=== PATIENT | male | born 1940 | race Caucasian/White ===

== ENCOUNTER 2017-03-23 22:23 | Emergency (ER) | payer MEDICARE, BC ==
[~2017-03-23] VITALS: Ht 180.3 cm; Wt 125.0 kg
[~2017-03-23 22:23] MED LIST: HYDR-1666; INDO25CA25; LEVO125T58; RANI150C11; [UNRECOGNIZED DRUG - CODE]
[2017-03-23 22:26] VITALS: Ht 180.3 cm; Wt 125.0 kg
[2017-03-23] MEDS ORDERED: LIDOCAINE 2% (MDV) 20 ML INJ INJ STA (22:56)
[2017-03-23] MEDS ORDERED: DIPHTH/TET/ACEL PERTUSS (ADULT) 0.5 ML VIAL IM ONE (23:00)
--- NOTE | 2017-03-23 23:35 | ERD ---
ER Documentation Chief Complaint Chief Complaint c/o left index finger lac x 30 min. (+) pressure dsg. HPI 76-year-old male presents 30 minutes status post left finger versus nutcracker. Laceration sustained. Denies diabetes. Denies numbness, tingling, loss of range of motion. Not on any blood thinners. Pain /. Vaccination status unknown. Patient has no other complaints and describes no other associated manifestations. Nursing notes have been reviewed and are consistent with history given. ROS All systems reviewed and are negative except as per history of present illness. Medications Home Meds Reported Medications Hydrocodone Bit/Acetaminophen (Vicodin 5/500 Tablet) 1 Tab Tablet 05/21/09 Indomethacin* (Indocin*) 25 Mg Capsule 04/29/09 Ranitidine Hcl (Ranitidine Hcl) 150 Mg Capsule 04/29/09 Levothyroxine Sodium (Levothroid) 125 Mcg Tablet 04/29/09 Amlodipine-Benazepril (Lotrel) 1 Cap Capsule 04/29/09 Allergies Allergies: Coded Allergies: Penicillins (Verified Allergy, Severe, RASH, 04/29/09) PMhx/Soc History of Surgery: Yes (juhi knee, pituitary tumor, cholecystectomy, left hip) Hx Neurological Disorder: No Hx Respiratory Disorders: No Hx Cardiac Disorders: Yes (HTN) Hx Miscellaneous Medical Probl: Yes (GOUTY ARTHRITIS) Hx Alcohol Use: No Hx Substance Use: No Hx Tobacco Use: No Smoking Status: Never smoker Physical Exam Vitals Vital Signs Date Time Temp Pulse Resp B/P Pulse Ox O2 Delivery O2 Flow Rate FiO2 03/23/17 22:26 98.7 83 18 157/85 98 Physical Exam Const: Healthy-appearing. Well-nourished. Well-developed. No acute distress. Skin: 4 cm vertical laceration over the radial aspect of the left second digit.. No petechiae or rashes. No ulcer, induration, jaundice. Good turgor. Ext: No cyanosis or edema noted. Head: Normocephalic. As noted in skin exam. Eyes: Non-injected; No scleral erythema, or discharge. EOMI and SHERLY bilaterally. Ears: Normal External Ears, EACs clear, TM normal bilaterally without erythema. Nose: Normal nose without discharge, septal deviation, or sinus tenderness. Oral: No oral edema visualized. Mucous membranes moist and pink. Neck: No cervical lymphadenopathy, or masses. Trachea midline. Supple ~ No meningismus. Pulm: Good air movement in upper and lower respiratory tracts. No dyspnea, stridor, tripoding or drooling. Clear to auscultation bilaterally. Cardio: Regular rate and rhythm. No JVD grossly observed. Radial and posterior tibial pulses 2+ bilaterally. No cyanosis. Capillary refill less than 2 seconds. Abd: Soft, non tender, non distended. No guarding. Normal bowel sounds. MS: Normal motor strength, normal tone with gross examination. Back: No midline or flank tenderness. Neur: Neurovascularly intact bilaterally. Awake, alert and oriented x3. Results 24 hrs Current Medications Medications (Trade) Dose Ordered Sig/Rodger Route PRN Reason Start Time Stop Time Status Last Admin Dose Admin Diphtheria/ Tetanus/Acell Pertussis (Adacel) 0.5 ml ONCE ONCE IM 03/23/17 23:00 03/23/17 23:01 DC 03/23/17 23:25 Lidocaine (Xylocaine 2% (Mdv) 20 ml) 20 ml ONCE STAT INJ 03/23/17 22:56 03/23/17 22:58 DC Procedures/MDM 76-year-old male presented with a chief complaint of laceration to the radial aspect of the second left digit. Neurovascularly intact. Tendons intact. 5 4- 0 nylon sutures were placed. 3 mL lidocaine without epi used to anesthetize the area with adequate anesthesia. No complications. Good approximation. No indication for antibiotics at this time. Tetanus shot given. I have spoke with the patient regarding their condition and future management. They have verbally responded that they understand their status and treatment plan. The patients vitals are stable, and their current condition is appropriate for discharge. The patient will be given discharge instructions with return precautions. Departure Diagnosis: Primary Impression: Laceration Condition: Stable Additional Instructions: You were seen in the emergency department for your laceration which has been closed. Your wound has been cleaned and covered with antibiotic ointment. Please keep this dressing on for 12 hours. After 12 hours take the dressing down and gently clean the wound with ONLY soap and water. If you were given antibiotics, complete the course of treatment as prescribed. Look for signs of infection such as increasing redness, swelling, pain or drainage of pus (yellow/ green fluid). If you see signs of infection, please return to the emergency department immediately. If there are no signs of infection, cover your wound with antibiotic ointment and reapply a dressing. You will form a scar. To keep from scarring too dark, keep your wound covered and out of the sun for the next 6-12 months. Consider using OTC anti-scar creams such as Mederma. Return to the ED for a wound check in 2 days and again for suture removal in 10-14 days. NEYMAR PADILLA PA-C Mar 23, 2017 23:35
== END 2017-03-23 23:56 | disposition home or self-care (01) ==
LOC: FTE 22:23
DX: S61.211A Laceration without foreign body of left index finger without damage to nail, initial encounter (principal); I10 Essential (primary) hypertension; X58.XXXA Exposure to other specified factors, initial encounter; Y92.9 Unspecified place or not applicable; Z23 Encounter for immunization
CPT/HCPCS: 90471; 90715